=== PATIENT | male | born 1970 | race Caucasian/White ===

== ENCOUNTER 2016-07-29 12:43 | Emergency (ER) | payer OTHER ==
--- NOTE | 2016-07-29 12:56 | ED.REPORT ---
HPI-Overdose/Alcohol Toxicity Date of Service Jul 29, 2016 ED Provider: Nayana QuinonesO. Patient is a 46 year old male who presents to the ED via EMS due to EtOH intoxication. Per medics, he was found too drunk to walk. The patient is mumbling about cocaine and smoking. He smells strongly of EtOH. He is sleeping upon entering the room but responsive to verbal stimuli. He denies SI. Pt is unable to provide hx or ROS. Nursing Notes Stated Complaint: INTOXICATION Chief Complaint: Substance Abuse Nursing Notes Reviewed: Yes General Time Seen by Provider: 13:00 Chief Complaint Intoxicated, alcohol Hx Obtained From: Patient, EMS Arrived By: Ambulance Onset Occurred: Just prior to arrival Symptom Duration: Since onset Severity: Current: No pain currently Recent Healthcare: No recent doctor visit, No recent hospitalization Similar Sx Previous: No Past Medical History Past Medical History denies Past Surgical History denies Ambulatory Status Independent Review of Systems Unable to Obtain ROS Patient condition Physical Exam Initial Vital Signs Vital Signs (First) Date Time Temp Pulse Resp B/P Pulse Ox O2 Delivery O2 Flow Rate FiO2 07/29/16 13:02 36.5 95 18 107/68 98 Room Air reviewed Initial VS: Reviewed Head / Eyes: Atraumatic, Normocephalic, PERRL ENT: Mucous membranes moist, Conjunctiva normal, No scleral icterus Extremities: Vascular intact, Neuro intact, No swelling, No tenderness Skin: Warm, Dry, No cyanosis Alertness: Positive: Sleeping but arousable Appearance / Presentation: Positive: Intoxicated Respiratory / Chest: Atraumatic, Breath sounds NL, Breath sounds = bilat, No respiratory distress, No rales, No rhonchi, No wheezing, No retractions Cardiovascular: Heart rate NL, Regular rhythm, Heart sounds NL, No gallop, No murmurs, No rubs Abdomen: Atraumatic, Soft, Non-tender, No guarding, No rebound, BS normoactive Speech: Positive: Slurred Psychiatric: Not suicidal Interpretation & Diagnostics Lab Results Interpretation Result Diagram: 07/29/16 1328 07/29/16 1328 Test 07/29/16 13:28 07/29/16 13:55 White Blood Count 7.8th/mm3 (3.8-10.1) Red Blood Count 4.99mil/mm3 (4.40-5.80) Hemoglobin 15.4g/dL (13.8-17.2) Hematocrit 45.4% (41.0-50.0) Mean Corpuscular Volume 91.0fL (81-100) Mean Corpuscular Hemoglobin 30.9pg (27.0-35.0) Mean Corpuscular Hemoglobin Concent 33.9% (32.0-37.0) Red Cell Distribution Width 15.3% (12.3-15.4) Platelet Count 246bil/L (150-400) Neutrophils (%) (Auto) 65.3% (40-74) Lymphocytes (%) (Auto) 25.2% (14-46) Monocytes (%) (Auto) 5.6% (4-12) Eosinophils (%) (Auto) 2.7% (0-5) Basophils (%) (Auto) 0.9% (0-3) Sodium Level 144mEq/L (134-144) Potassium Level 4.2mEq/L (3.5-5.2) Chloride Level 104mEq/L (97-108) Carbon Dioxide Level 20mmol/L (18-29) Blood Urea Nitrogen 10mg/dL (6-24) Creatinine 0.73mg/dL (0.76-1.27) Estimat Glomerular Filtration Rate 123mL/min (>59) Glucose Level 87mg/dL (60-99) Calcium Level 9.1mg/dL (8.5-10.1) Total Bilirubin 0.3mg/dL (0.0-1.2) Aspartate Amino Transf (AST/SGOT) 15U/L (0-50) Alanine Aminotransferase (ALT/SGPT) 9U/L (0-44) Alkaline Phosphatase 84U/L (25-150) Total Protein 7.1g/dL (6.4-8.4) Albumin 4.6g/dL (3.4-5.0) Thyroid Stimulating Hormone (TSH) 0.265uIU/mL (0.450-4.500) Hold Ramos Top Tube Received (Received) Alcohol, Quantitative 373mg/dL (0-10) Hold Urine Received (Received) ECG Interpretation ECG Interpretation: QTC 450 Time: 14:58 Interpreted by: ED physician Normal ECG Interpretation: Normal sinus rhythm (81) Re-Eval/Medical Decision Med Decision/Clinical Course Patient arrived severely altered suspect alcohol intoxication, he initially was minimally responsive but evidence of frontal bruising which prompted a head CT. Prior to a meaningful sobriety patient became very aggressive and agitated requiring medication to help calm him while we are determining the etiology of his somnolence and agitation. Currently care is transferred to Dr. Fagan Re-Evaluation/Progress : Time of Eval: 14:00 Patient Status: Condition unchanged Re-Evaluation/Progress Note: Pt is drunk, belligerent and aggressive. Code ramos. Counseled Regarding: Diagnosis, Lab results Discharge & Departure Shift Change Sign-Out Patient Care Transferred: Yes Laboratory Evaluation: Ordered, not yet done Imaging Studies: Ordered, not yet done Impression: Primary Impression: Alcohol intoxication Complication of substance-induced condition: with unspecified complication Qualified Code: F10.129 - Alcohol abuse with intoxication, unspecified Disposition: Home Discharge Condition All VS Reviewed: Yes Condition: Stable Additional Instructions: You should stop drinking alcohol, it is extremely bad for you. Please drink plenty of water to stay hydrated. Take Ibuprofen and Tylenol as needed for pain. Return to the Emergency Department if you experience any new or worsening symptoms. We hope you feel better soon! Care Transferred to: Dr. Deacon Fagan Care Transferred at: 15:01 Freda Attestation Portion of this note were transcribed by Danny Ramirez. I, Dr. Vargas, personally performed the history, physical exam, and medical decision-making: I reviewed and confirmed the accuracy for the information in the transcribed note. Signed by: freda Thomas, [id number]/29/[id number] Omer Vargas DO Jul 29, 2016 12:56 DANNY RAMIREZ Jul 29, 2016 13:12
[2016-07-29 13:02] VITALS: BP 107/68; PULSE 95; RESP 18; O2SAT 98
[2016-07-29] MEDS ORDERED: Haloperidol 5 mg/mL Inj IM ONE (13:45)
[2016-07-29 13:51] LABS: BASOPHILS % (AUTO) 0.9 % (0-3); EOSINOPHILS % (AUTO) 2.7 % (0-5); MONOCYTES % (AUTO) 5.6 % (4-12); Mean Corpuscular Hemoglobin 30.9 pg (27.0-35.0); NEUTROPHILS % (AUTO) 65.3 % (40-74); Platelet Count 246 bil/L (150-400)
--- NOTE | 2016-07-29 15:04 | DRSVH ---
PROCEDURE: CT BRAIN WITHOUT CONTRAST ([id number]) INDICATIONS: aloc TECHNIQUE: Noncontrast 4.5 mm thick angled axial sections acquired from the foramen magnum to the vertex, with c oronal reformats. COMPARISON: None. FINDINGS: Image quality: Limited study due to motion and streak artifact as well as suboptimal positioning due to patient's altered level of consciousness.. CSF spaces: Basal cisterns are patent. No extra-axial fluid collections. Ventricles are normal in size and shape. Brain: No definite intracranial hemorrhage, mass, or mass effect. Saunders-white matter interface is gr ossly preserved. Skull and face: Calvarium is intact without definite acute fractures. There is irregularity of the nasal bone consistent with fractures of indeterminate acuity. There are postsurgical changes within the right temporal bone through the mastoid air cells. Soft tissue density defect is demonstrated wi thin the right external auditory canal. Sinuses: Visualized sinuses demonstrate mild mucosal thickening within the bilateral maxillary sinus es. There are postsurgical changes in the right temporal bone status post resection of the right mas toid air cells are IMPRESSION: 1. Limited study demonstrates no definite acute intracranial abnormality. 2. Fractures of the nasal bones of indeterminate acuity. 3. Postsurgical changes in the right temporal bone involving the mastoid air cells of indeterminate etiology. Recommend correlation with clinical history. 4. Soft tissue filling defect in the right external auditory canal suggestive of cerumen but correla tion is recommended with clinical exam. Dictated by: Red Tanner M.D. on 07/29/2016 at 14:59 Approved by: Red Tanner M.D. on 07/29/2016 at 15:03
[2016-07-29 18:52] VITALS: BP 97/60; PULSE 74; RESP 16; O2SAT 98
[2016-07-29 22:41] VITALS: BP 122/83; PULSE 111; RESP 20; O2SAT 99
[2016-07-30 02:53] VITALS: BP 120/67; PULSE 111; O2SAT 95
[2016-07-30 06:22] VITALS: BP 110/71; PULSE 95; O2SAT 99
== END 2016-07-30 08:59 | disposition home or self-care (01) ==
LOC: SED 12:43 → EDBD 12:43 → SED 07-30 08:59
DX: F10.129 Alcohol abuse with intoxication, unspecified (principal); R45.1 Restlessness and agitation; E05.90 Thyrotoxicosis, unspecified without thyrotoxic crisis or storm; F17.200 Nicotine dependence, unspecified, uncomplicated
CPT/HCPCS: 36415; 70450; 80053; 82948; 84443; 85025; 93005; 96372; 99285; G0480; J1200; J1630; J2060